=== PATIENT | female | born 1940 | race Caucasian/White ===

== ENCOUNTER 2018-06-02 12:16 | Inpatient (IN) | payer MEDICARE, OTHER ==
[~2018-06-02] VITALS: Ht 167.6 cm; Wt 97.1 kg
[2018-06-02] MEDS ORDERED: ALEVE220 MG PO (13:07)
[2018-06-02] MEDS ORDERED: GLIPIZIDE XL5 MG PO (13:08)
[2018-06-02] MEDS ORDERED: SYNTHROID100 MC1 PO (13:09)
[2018-06-02] MEDS ORDERED: PERCOCET PO (13:10)
[2018-06-02] MEDS ORDERED: XARELTO10 MG PO (13:12)
[2018-06-02 13:59] VITALS: BP 117/48
--- NOTE | 2018-06-02 15:30 | NUR ---
REPORT RECEIVED FROM TAMRA AT [facility], PATIENT ADMITTED TO ROOM 321. A/O, REPORTS DISCOMFORT TO LEFT FEMUR, ICE PACK IN PLACE, DECLINED NARCOTIC PAIN MEDICATION. SURGICAL WOUND TO LEFT LATERAL THIGH, DRESSING C/D/I, WRAPPED IN MOLLY BANDAGE. TOE TOUCH WEIGHT BEARING TO LEFT LEG, VITALS STABLE, ORIENTED TO ROOM AND PLAN OF CARE, FAMILY AT BEDSIDE, CALL LIGHT IN REACH.
[2018-06-02 20:20] VITALS: BP 116/49
[2018-06-03 04:49] LABS: HEMOGLOBIN 10.8 gm/dL (12.0-15.0); MCH 30.2 pg (26.0-34.0); MCHC 33.6 g/dL (28.0-37.0); MCV 89.9 fL (80.0-100.0); MPV 8.9 fl. (7.2-11.1); RBC 3.56 mil/uL (4.20-5.00); RDW-CV 12.9 % (10.5-14.5); WBC 5.4 thou/uL (4.0-11.0)
[2018-06-03 05:01] LABS: CALCIUM 8.5 mg/dL (8.5-10.1); CREATININE 0.8 mg/dL (0.6-1.3); POTASSIUM 4.7 mmol/L (3.5-5.1)
--- NOTE | 2018-06-03 05:50 | NUR ---
PT SLEPT AT INTERVALS DURING THE NIGHT, PLEASANT, PRN PAIN MEDS PER REQUEST, UP WITH MINIMAL ASSIST WITH LEFT LEG, THEN AMBULATES INTO BATHROOM WITH GAITBELT AND WALKER WITH SUPERVISION, INDEPENDENT WITH TOILETING/WIPING. PLEASANT, CALL LIGHT IN REACH, BED ALARM ON FOR SAFETY, WILL CONTINUE TO MONITOR
[2018-06-03 08:00] VITALS: BP 138/60
--- NOTE | 2018-06-03 10:32 | NUR ---
RESUMED CARE THIS AM, EXT ASSIST OF ONE WITH PLANE CHANGES, DISCOMFORT MANAGED WELL WITH NARCOTIC MEDICATION, DOES MAKE PATIENT VERY SLEEPY, MEDICATION CHANGE ORDERED BY DR. ABDI TO ENHANCE THERAPY PARTICIPATION. GLUCOSE MAINTAINED WELL WITH ORAL MEDICATION, CONTINENT OF BOWEL/BLADDER, MAKES APPROPRIATE DECISIONS REGARDING SAFETY, CARE PLAN REVIEWED, NO QUESTIONS AT THIS TIME, CONT POC.
[2018-06-03 20:00] VITALS: BP 129/53
--- NOTE | 2018-06-04 06:10 | NUR ---
ASSUMED CARES AT 1920. PT ALERT AND ORIENTED. PLEASANT. S/P LEFT FEMUR ORIF. TTWB LLE. C/O BURNING PAIN TO LEFT LEG. REFUSED TO TAKE PERCOCET WHEN OFFERED. TAKES PILLS WHOLE WITHOUT ISSUES. SHE IS A MIN ASSIST WITH GAIT BELT AND WALKER. UP TO BATHROOM. DOES OWN CARES. NEEDS ASSIST WITH LLE IN/OUT BED. DRESSING TO LEFT LEG C/D/I. SLEPT BETTER TONIGHT DUE TO BEING TIRED. USED CALL LIGHT APPROPRIATELY. BED ALARM ON.
[2018-06-04 08:00] VITALS: BP 133/55
--- NOTE | 2018-06-04 10:34 | NUR ---
RESUMED CARE THIS AM, CONT TO REPORT BURNING SENSATION TO LEFT THIGH, SETUP/STANDBY ASSIST WITH BED MOBILITY, TRANSFERS, AMBULATION, TOILETING, PERSONAL HYGEINE. CARE PLAN REVIEWED WITH PATIENT, DENIES QUESTIONS AT THIS TIME, CONT POC.
--- NOTE | 2018-06-04 18:18 | NUR ---
TOLERATED BED MOBILITY, TRANSFERS, AMBULATION TO TOILET, TRANSFERS TO WHEELCHAIR ALL THIS SHIFT WITHOUT NARCOTIC PAIN MEDICATION, SCHEDULED ULTRAM AND NAPROXEN GIVEN ORDERED, ICE PACK APPLIED TO LEFT THIGH, SLEPT ON AND OFF THROUGHOUT THIS SHIFT, COMPLIANT WITH MEDS AND CARES.
[2018-06-04 20:00] VITALS: BP 116/57
--- NOTE | 2018-06-05 05:01 | NUR ---
ASSUMED CARES AT 1920. PT ALERT AND ORIENTED. PLEASANT. TTWB LLE. REFUSED PAIN MEDS FOR LLE PAIN. DENIES NEED FOR ALTERNATE PAIN MED. SAYS WILL TAKE WHEN HAS THERAPIES. ISLAND DRESSING TO LEFT THIGH INTACT. SHE IS A MIN ASSIST WITH GAIT BELT AND WALKER. UP TO BATHROOM. DOES OWN CARES. SLEPT OFF AND ON. CALL LIGHT IN REACH AND BED ALARM ON.
[2018-06-05 08:00] VITALS: BP 137/55
--- NOTE | 2018-06-05 13:08 | NUR ---
Nutrition: Pt admitted to Rehab s/p open biopsy bone cancer. CHO count diet, eating 100%. Wt: 200#. +BM. BG 172. RX and PMHx noted. No acute nutrition concerns at this time. Will follow weekly.
--- NOTE | 2018-06-05 15:07 | NUR ---
ASSUMED CARE AT 0730. ALERT ORIENTED PLEASANT COOPERATIVE. HX OF L FEMUR ORIF DUE TO BONE TUMOR. TTWBLLE TRANSFERS WITH SBA G BELT AMBULATES TO BR TO VOID AND ABLE TO DO HYGEINE AND CLOTHING ADJUSTMENTS. USES CALL LIGHT APPROPRIATELY FOR ASSIST FEEDS SELF TAKES MEDS WITHOUT DIFFICULTY. PARTICIPATING IN THERAPIES. MEDICATED WITH PRN MEDS X 2 FOR L THIGH BURNING PAIN. DRESSING C/DI TO L THIGH. DID HAVE C/O NAUSEA STOMACH CRAMPS CHILLS WHEN AWAKEDING THIS A.M. VSWNL AND THE SYMPTOMS PASSED AFTER BREAKFAST.
--- NOTE | 2018-06-05 16:12 | NUR ---
SW met with pt to complete initial assessment, introduce self, and SW role on rehab unit. Pt lives home alone [place] of [place], [place] and was staying with her son Didier in [place], [place] up until the surgery and plans to dc to son Didier's home until after follow up with surgeon and clearance from the surgeon to return home alone. Pt has a follow up 's appt with Dr Billingsley on [facility] on ; SW to follow to arrange transportation, pt son to call SW to discuss which transport they would prefer as pt had stated the transport to this hospital was very bumpy and uncomfortable. Pt has RW, grab bars, shower chair, and stool riser. SW to continue to follow to assist with safe dc planning.
[2018-06-05 19:50] VITALS: BP 123/53
--- NOTE | 2018-06-06 05:25 | NUR ---
ASSUMED CARES AT 1920. PT ALERT AND ORIENTED. PLEASANT. SAYS THAT BURNING PAIN TO LLE HAS LESSENED SOME. BUT MOVEMENT INCREASES PAIN. ICE PACK GIVEN. REFUSED PERCOCET. ORDER OBTAINED FOR LOW DOSE S/S INSULIN. PT ATE HS SNACK. MIN ASSIST WITH GAIT BELT AND WALKER. UP TO BATHROOM SEVERAL TIMES DURING THE NIGHT. DOES OWN CARES. SLEPT OTHERWISE. CALL LIGHT IN REACH.
[2018-06-06 08:21] VITALS: BP 129/57
--- NOTE | 2018-06-06 11:29 | NUR ---
MARY called pt son Didier who did not answer so MARY left a detailed message requesting call back with any questions or comments in preparation for team conference tomorrow. SW to follow to arrange transportation to pt appt on and to follow to assist with safe dc planning.
--- NOTE | 2018-06-06 15:51 | NUR ---
AM ASSESSMENT AND VITAL SIGNS COMPLETED DOCUMENTED. DRESSING TO LEFT UPPER LEG C/D/I. PRN PAIN MEDICATION GIVEN FOR C/O PAIN AND BURNING AT SURGICAL SIGHT, ICE PACK ALSO APPLIED WITH ADEQUATE RELIEF. PT IS ABLE TO AMBULATE SHORT DISTANCES WITH A WALKER AND SBA, CONTINUES TO BE TTWB. FALL PRECAUTIONS AND HOURLY ROUNDING IN PLACE.
[2018-06-06 20:30] VITALS: BP 115/46
--- NOTE | 2018-06-06 20:35 | NUR ---
SITTING UP IN BED WATCHING TV. DENIES DISCOMFORT. GAVE MOM AND PRUNE JUICE FOR C/O CONSTIPATION. DIDN'T WANT TO TAKE A SUPPOSITORY. TOOK MEDS WHOLE WITH POP FROM [employer].
--- NOTE | 2018-06-07 05:14 | NUR ---
UP X TWO DURING THE NIGHT TO THE BATHROOM. THE SECOND TIME HAD A LARGE LOOSE BM. AMBULATES TO THE BATHROOM WITH SBA, GAITBELT, WALKER. DOES OWN HYGIENE AND CLOTHING ADJUSTMENTS. TOE TOUCH WEIGHT BEARING TO LEFT LOWER EXTREMITY. LEFT LEG DRESSING DRY/INTACT.
[2018-06-07 08:00] VITALS: BP 113/53
--- NOTE | 2018-06-07 18:01 | NUR ---
AM ASSESSMENT AND VITAL SIGNS COMPLETED DOCUMENTED. PT CONTINUES TO PROGRESS TOWARD DISCHARGE GOALS. PRN PERCOCET GIVEN X 1 THIS SHIFT WITH ADEQUATE PAIN CONTROL. FALL PRECAUTIONS AND HOURLY ROUNDING CONTINUE.
--- NOTE | 2018-06-07 20:25 | NUR ---
SITTING UP IN BED PLAYING A VIDEO GAME ON HER CELL PHONE. PAIN MEDICATION GIVEN FOR COMPLAINT OF LEFT LEG PAIN. LEFT LEG DRESSING DRY/INTACT. AMBULATED TO BATHROOM WITH SBA, GAITBELT, WALKER. DOES OWN HYGIENE AND CLOTHING ADJUSTMENTS. COLD PACK GIVEN PER REQUEST TO PLACE ON LEFT LEG FOR PAIN RELIEF. TOOK MEDICATIONS WHOLE ALL AT ONCE WITH DEANDRE MIST.
[2018-06-07 20:26] VITALS: BP 110/45
--- NOTE | 2018-06-08 05:04 | NUR ---
UP X TWO DURING THE NIGHT TO THE BATHROOM TO VOID. NO FURTHER C/O PAIN. HOURLY ROUNDING IN PROGRESS.
[2018-06-08 08:00] VITALS: BP 132/58
--- NOTE | 2018-06-08 16:22 | NUR ---
MARY and Dr Yañez met with pt and pt to review team conference summary. Plan for pt to remain on rehab unit and continuing therapies one more weed with reteam on Tuesday and possible dc home on 06/15. Pt and pt okay with plan. MARY discussed possible need for ramp and that SW will continue to follow to assist with safe dc planning.
--- NOTE | 2018-06-08 17:02 | NUR ---
ASSUMMED CARE OF PT AT 0730, PT ALERT AND ORIENTED, PT TRANSFERS WITH SBA GB AND WALKER, COMPLAINS OF PAIN IN LEFT LEG, MEDICATED PER ORDER, DRESSING DRY AND INTACT, TAKING FOOD AND FLUIDS WELL, VOIDS PER TOILET, TO DININGROOM FOR LUNCH, PT WENT TO [facility] OFFICE AT 1445, AWAINTING RWETURN TO UNIT, PARTCIPATED IN ALL THERAPIES, HOURLY ROUNDING COMPLETED ASSESSMENT COMPLETE WILL COTNINUE TO MONITOR.
[2018-06-08 20:01] VITALS: BP 128/49
--- NOTE | 2018-06-09 05:11 | NUR ---
ASSUMED CARES AT 1920. PT ALERT AND ORIENTED. PLEASANT. S/P LEFT FEMUR ORIF. TTWB LLE. C/O MORE BURNING PAIN THAN BEFORE ESPECIALLY TO LEFT KNEE. PERCOCET GIVEN ALONG WITH ICE PACK WHICH SEEMED TO HELP. DRESSING TO LEFT THIGH IN PLACE. ALSO NOW HAS YEASTY RASH UNDER LEFT BREAST. MIN ASSIST WITH GAIT BELT AND WALKER. UP TO BATHROOM FEW TIMES DURING THE NIGHT. DOES OWN CARES. SLEPT OTHERWISE. CALL LIGHT IN REACH. BED ALARM ON.
[2018-06-09 08:00] VITALS: BP 140/67
--- NOTE | 2018-06-09 16:02 | NUR ---
ASSUMED CARE AT 0730. ALERT ORIENTED PLEASANT COOPERATIVE. HX OF BONE TUMOR L UPPER THIGH, ORIF DONE TTWBLLE TRANSFERS WITH SBA G BELT WALKER AND AMBULATES TO BR ABLE TO DO HYGEINE AND CLOTHING ADJUSTMENTS. USES CALL LIGHT APPROPRIATELY FOR ASSIST PARTICIPATING IN THERAPIES. TAKES MEDS WITHOUT DIFFICULTY. FEEDS SELF APPETITE GOOD. MEDICATED X 1 FOR BURNING PAIN L THIGH WITH SOME RELIEF. MOVED TO 330 THIS AFTERNOON WITH BELONGINGS.
[2018-06-09 20:35] VITALS: BP 123/48
--- NOTE | 2018-06-10 00:44 | NUR ---
ASSUMED CARE AT 1930. RESTING IN RECLINER UNTIL HS. UP WITH SBA, GAIT BELT, WALKER. TTBW LLE. VOIDS PER TOILET AND DOES ALL HYGIENE AND CLOTHING ADJUSTMENTS. THIGH DRESSING C/D/I. TURNS SELF. NEEDS A LITTLE HELP GETTING LLE INTO BED. HOURLY ROUNDS CONTINUE. BED ALARM ON. CALL LITE IN REACH.
--- NOTE | 2018-06-10 05:50 | NUR ---
SLEPT MOST OF THE NIGHT EXCEPT TO VOID. VOIDED ABOUT EVERY 2-3 HOURS PER TOILET. NO C/O PAIN. HOURLY ROUNDS CONTINUE. BED ALARM ON. CALL LITE IN REACH.
[2018-06-10 08:15] VITALS: BP 128/57
--- NOTE | 2018-06-10 16:56 | NUR ---
ASSUMMED CARE OF PT AT 0730, PT ALERT AND ORIENTED, TRANSFERS WITH SBA GB AND WALKER, MAINTAINS TTWB TO LEFT LEG, DRSG C/D/I TO LEFT LEG, PT REQUESTING GABAPENTIN DOSE BE INCREASED, ORDER OBTAINED, AMBULATES TO TOILET TO VOID, AMBULATES TO DININGROOM FOR MEALS, PARTICIAPTED IN ALL THERAPIES, HOURLY ROUNDING COMPLETED, ASSESSMENT COMPLETE, WILL CONTINUE TO MONITOR.
[2018-06-10 20:31] VITALS: BP 139/53
--- NOTE | 2018-06-10 23:40 | NUR ---
ASSUMED CARE AT 1930. PATIENT WAS PLAYING GAMES IN DINING ROOM. AMBULATED TO ROOM WITH WALKER, GAIT BELT, SBA. VOIDED PER TOILET. DOES OWN HYGIENE AND CLOTHING ADJUSTMENTS. MAINTAINS TTWB TO LLE. NEEDS HELP GETTING LT LEG INTO BED. DRESSING C/D/I. SKIN UNDER LT BREAST IMPROVING WITH NYSTATIN POWDER. TAKES PILLS WHOLE WITH WATER. HOURLY ROUNDS CONTINUE, BED ALARM ON. CALL LITE IN REACH.
--- NOTE | 2018-06-11 06:14 | NUR ---
SLEPT MOST OF THE NIGHT EXCEPT WHEN UP TO VOID. VOIDS PER TOILET, UP WITH SBA, GAIT BELT, WALKER TTWB TO LLE MAINTAINED. BED ALARM ON. CALL LITE IN REACH. HOURLY ROUNDS CONTINUE. NO FURTHER C/O PAIN.
[2018-06-11 08:21] VITALS: BP 133/58
--- NOTE | 2018-06-11 17:02 | NUR ---
ASSUMMED CARE OF PT AT 0730, PT ALERT AND ORIENTED, PT TRANSFERS WITH SBA, GB WALKER, PT COMPLETED GROOMING AND BATHING SITTING AT SINK, ABLE TO DRESS SELF WITH SLIGHT STEADYING WHEN ADJUSTS CLOTHING UP, PT HAS NOT REQUESTED ANY PAIN MEDICATION THIS SHIFT, PT DID COMPLAIN OF PAINFUL AREA ON HER BUTTOCKS, NOTED A SMALL RED AREA, ALMOST A BLISTER, AREA CLEANSED, BARRIER OINTMENT APPLIED, CONSULT TO WOUND NURSE DONE, PT EDUCATED ON IMPORTANCE OF REPOSTIONING FREQUENTLY, PT COMMUNICATES UNDERSTANDING AND HAS BEEN LAYING ON SIDES WHEN IN BED, VOIDS PER TOILET, LARGE BM X 1 THIS SHIFT, TAKING FOOD AND FLUIDS WELL, HOURLY ROUNDING COMPLETED, ASSESSMENT COMPLETE, WILL CONTINUE TO MONITOR.
[2018-06-11 19:30] VITALS: BP 110/71
--- NOTE | 2018-06-12 00:03 | NUR ---
ASSUMED CARE AT 1929. PATIENT RESTING IN RECLINER BUT ATTEMPTING TO CHANGE POSITIONS. STATES THAT TODAY WAS THE FIRST TIME THAT SHE COULD LIE ON HER SIDE WITHOUT PAIN. UP WITH SBA, GAIT BELT, WALKER. 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 SHE IS VERY RELUCTANT TO LOOK AT THE WOUND. VOIDS PER TOILET. TO BED AROUND 2129, STARTING OFF ON RIGHT SIDE. NO C/O PAIN. HOURLY ROUNDS CONTINUE. BED ALARM ON, CALL LITE IN REACH, PATIENT PLAYING GAMES ON PHONE AT TIMES.
--- NOTE | 2018-06-12 05:37 | NUR ---
SLEPT MOST OF THE NIGHT EXCEPT TO VOID. NO C/O PAIN. HOURLY ROUNDS CONTINUE. BED ALARM ON. CALL LITE IN REACH.
[2018-06-12 07:35] VITALS: BP 117/52
--- NOTE | 2018-06-12 18:21 | NUR ---
ASSUMED CARE AT 0730 ALERT ORIENTED PLEASANT COOPERATIVE. HX OF L THIGH ORIF FOR BONE TUMOR. INCISION EASTON HEALING, TTWBLLE AMBULATES TO BR WITH WALKER AND GAIT BELT ABLE TO MANAGE ALL CLOTHING ADJUSTMENTS AND HYGEINE. USES CALL LIGHT APPROPRIATELY FOR ASSIST PARTICIPATING IN THERAPIES. DENIES NEED FOR PAIN MED TODAY WHEN OFFERED.
[2018-06-12 19:30] VITALS: BP 114/48
--- NOTE | 2018-06-13 05:14 | NUR ---
ASSUMED CARES AT 1920. PT ALERT AND ORIENTED. PLEASANT. DENIED ANY NEED FOR PAIN MEDS. SHE IS A SBA WITH GAIT BELT AND WALKER. UP TO BATHROOM. DOES OWN CARES. LEFT LEG INCISION WELL APPROXIMATED WITHOUT DRAINAGE. NO ISSUES. SLEPT WELL MOST OF THE NIGHT. CALL LIGHT IN REACH. BED ALARM ON.
[2018-06-13 08:31] VITALS: BP 124/57
--- NOTE | 2018-06-13 15:27 | NUR ---
SW called pt son Didier in preparation for team conference tomorrow. Pt son did not have any questions or comments and was aware that pt may be able to dc on as discussed last week in team. SW mentioned that SW and pt discussed DME yesterday and pt already has RW and pt looking in to finding a wc if needed but SW explained that pt does not qualify for a wc at this time. Pt will dc to pt son's home: [address] [place] [place] [address]. SW to continue to follow to assist with safe dc planning and discuss with pt HH options and arrange HH services as recommended.
--- NOTE | 2018-06-13 17:12 | NUR ---
RICHIE ALBRIGHT HAS REVIEWED AND AGREES WITH STUDENT NURSES CHARTING THROUGHOUT SHIFT.
--- NOTE | 2018-06-13 18:28 | NUR ---
PT CAROLYN A&LASHAWN. VITAL SIGNS STABLE ON ROOM AIR. NO COMPLAINTS OF NAUSEA OR SOA. PAIN MANAGED WITH TOPICAL MEDICATION. SBA WITH GAIT BELT AND WALKER. UP TO THE BATHROOM. DOES OWN CARES. PARTICIPATED IN THERAPIES THROUGHOUT SHIFT. HOURLY ROUNDS MAINTAINED. CALL LIGHT WITHIN REACH. WILL CONTINUE TO MONITOR.
[2018-06-13 19:30] VITALS: BP 118/55
--- NOTE | 2018-06-14 05:00 | NUR ---
ASSUMED CARES AT 1920. PT ALERT AND ORIENTED. PLEASANT. DENIED ANY NEED FOR PAIN MEDS. TTWB LLE. SBA WITH GAIT BELT AND WALKER. UP TO BATHROOM. DOES OWN CARES. NO ISSUES OVERNIGHT. CALL LIGHT IN REACH AND BED ALARM ON.
[2018-06-14 08:00] VITALS: BP 141/61
--- NOTE | 2018-06-14 10:04 | NUR ---
WOUND CARE NOTE: CONSULT RECEIVED FOR REDNESS TO BOTTOM. PATIENT PRESENTS WITH A SMALL RED AREA TO HER COCCYX APPROXIMATELY 0.5X0.5 NO OPENING. PATIENT DOES WEAR DEPENDS, WHICH MAY BE A CONTRIBUTING FACTOR. PATIENT STATES AREA IS FEELING MUCH BETTER. PATIENT STATES WHEN SHE SITS IN HER CHAIR SHE SITS SIDE TO SIDE, AVOIDING THE AREA. ALSO STATED SHE SLEPT ON HER SIDES LAST NIGHT. ALSO USES BARRIER OINTMENT. EDUCATED PATIENT ON USING A WAFFLE CUSHION IN HER CHAIR INSTEAD OF PILLOWS, COMMUNICATED UNDERSTANDING. RECOMMEND TURN Q2 HOURS BARRIER OINTMENT BID AND PRN WAFFLE CUSHION WHEN IN CHAIR WILL SIGN OFF AT THIS TIME, PLEASE RECONSULT IF NEEDED
[2018-06-14 16:55] VITALS: BP 141/61
--- NOTE | 2018-06-14 16:56 | NUR ---
Plan for pt to dc home with son tomorrow, 06/15. HH services tomorrow; pt preference for [facility]; SW faxed referral and final orders and med list. Pt son to provide pt ride home. No other dc needs expressed.
--- NOTE | 2018-06-14 17:00 | NUR ---
AM ASSESSMENT AND VITAL SIGNS COMPLETED DOCUMENTED. PT HAS BEEN PLEASANT AND COOPERATIVE, CONTINUES TO WORK TOWARD DISCHARGE GOALS. LEFT UPPER LEG INCISION IS EASTON, WELL APPROXIMATED AND HEALING WELL. PT ENCOURAGED TO USE A WAFFLE CUSHION WHEN UP IN A CHAIR AND TO SHIFT HER WEIGHT FREQUENTLY. PT HAS BEEN AMBULATING TO THE DINING ROOM FOR MEALS, USES AND A WALKER AND IS TTWB. FALL PRECAUTIONS AND HOURLY ROUNDING CONTINUE.
[2018-06-14 20:30] VITALS: BP 126/51
[2018-06-14 22:09] VITALS: BP 141/61
[2018-06-14] MEDS ORDERED: GABAPENTIN100 MG PO (22:23)
--- NOTE | 2018-06-15 05:15 | NUR ---
ASSUMED CARES AT 1920. ALERT AND ORIENTED. PLEASANT. DENIED ANY PAIN. TTWB LLE. SBA WITH GAIT BELT AND WALKER. UP TO BATHROOM. DOES OWN CARES. PT TURNS SELF IN BED. SLEPT OFF AND ON. CALL LIGHT IN REACH AND BED ALARM ON.
[2018-06-15 08:27] VITALS: BP 136/56
[2018-06-15 10:54] VITALS: BP 141/61
--- NOTE | 2018-06-15 10:55 | NUR ---
CM INFORMED BY NURSING THAT THE PATIENT REQUEST CHANGE IN HH TO [facility]. CM CONTACTED [facility] TO INFORM OF THE NEW REFERRAL AND FAXED PATIENT'S CLINICAL INFO AND D/C ORDERS. CM ALSO SPOKE TO BETHEL AT [facility] TO INFORM THAT THE PATIENT AND FAMILY HAS CHOSEN TO USE ANOTHER HH. CM WILL REMAIN AVAILABLE TO ASSIST AND FOLLOW NEEDED.
--- NOTE | 2018-06-15 14:51 | NUR ---
PT CARE ASSUMED AT 0720, ASSESSMENT AND VITAL SIGNS COMPLETED DOCUMENTED. PT HAS COMPLETED ALL THERAPY SESSIONS FOR THE DAY. DISCHARGE INSTRUCTIONS AND NEW PRESCRIPTIONS DISCUSSED WITH PT, PRINTED INFORMATION PROVIDED FOR HOME. FALL PRECAUTIONS AND HOURLY ROUNDING WILL CONTINUE UNTIL DISCHARGE.
--- NOTE | 2018-06-15 16:45 | NUR ---
PT AND BELONGINGS TRANSPORTED TO EXIT, DISCHARGED HOME IN STABLE CONDITION.
--- NOTE | 2018-06-22 12:46 | H ---
[place] [address] HISTORY AND PHYSICAL Name: HARMONY DURBIN Room: [address]#: [id number] Admission: 06/02/18 Attend Phys: Alejandrina Yañez DO Discharge: 06/15/18 Date of : 42 Report #: [id number] THIS REPORT FOR: //name// CC: THEA Yañez Physician staff DATE OF SERVICE: 06/02/2018 HISTORY OF PRESENT ILLNESS: This is a 77-year-old female admitted to inpatient rehabilitation to facilitate safe discharge home, status post acute rehabilitation for debility. No significant changes since preadmission screening. Previous level of function was modified independent to independent with activities of daily living. Current level of function is minimum to moderate assistance of 1-2 depending on therapy, activity and time of day. ALLERGIES: No known drug allergies. PAST MEDICAL HISTORY: Diabetes, lumbar . PAST SURGICAL HISTORY: Hysterectomy, tonsillectomy and cataract surgery. SOCIAL HISTORY: No tobacco, alcohol or illicit drug use. REVIEW OF SYSTEMS: A 14-point review of systems is done and is negative other than mentioned in the HPI. PHYSICAL EXAMINATION: GENERAL: Alert and oriented, no apparent distress. VITAL SIGNS: Reviewed and are stable. HEENT: Head atraumatic, normocephalic. Pupils equal, round, reactive. ABDOMEN: Soft, nontender, nondistended. NEUROLOGIC: Cranial nerves 2 through 12 are grossly intact. No focal deficits. ASSESSMENT AND PLAN: 1. Debility. 2. Multiple medical comorbidities. 3. Assessment admission to inpatient rehabilitation. 4. PT, OT, case management, nursing and HIMS to make evaluations and recommendations. 5. Plan of care is pending. We will team her weekly and make changes to plan of care as needed. <ELECTRONICALLY SIGNED> By: Alejandrina Yañez DO 06/22/18 1246 1845 1901Alejandrina Yañez DO /nt
--- NOTE | 2018-07-19 14:10 | D ---
[address] [address] DISCHARGE SUMMARY Name: RAMAKRISHNAHARMONY Concepcion Room: [address] IN [facility]#: [id number] Admission: 06/02/18 Attend Phys: Alejandrina Yañez DO Discharge: 06/15/18 Date of : 42 Report #: [id number] THIS REPORT FOR: //name// CC: THEA Yañez Physician staff DATE OF SERVICE: 06/15/2018 This is a 77-year-old female post-rehabilitation for diagnosis of debility, discharged to the home setting. Notifications for physician were given. Home health, PT, OT and nursing. Fall precautions. MEDICATIONS: Reviewed and reconciled by myself and are available in the MAR. DISCHARGE PHYSICAL EXAMINATION: GENERAL: Alert, oriented, in no apparent distress. VITAL SIGNS: Reviewed and are stable. HEENT: Atraumatic, normocephalic. Pupils are equal, round, reactive. ABDOMEN: Soft, nontender, nondistended. SKIN: Warm and dry. No rashes or lesions noted. <ELECTRONICALLY SIGNED> By: Alejandrina Yañez DO 07/19/18 1410 1223 [id number] Yañez DO /nt
== END 2018-06-15 16:53 | disposition home health service (06) | DRG 947 ==
LOC: M.REH 12:16
PROVIDERS: ADMIT Physical Medicine & Rehabilitation
DX: R53.81 Other malaise (principal); S72.002A Fracture of unspecified part of neck of left femur, initial encounter for closed fracture; E03.9 Hypothyroidism, unspecified; E11.40 Type 2 diabetes mellitus with diabetic neuropathy, unspecified; X58.XXXA Exposure to other specified factors, initial encounter; Z90.710 Acquired absence of both cervix and uterus; Z85.3 Personal history of malignant neoplasm of breast; Z98.42 Cataract extraction status, left eye; Z98.41 Cataract extraction status, right eye; Z79.899 Other long term (current) drug therapy; Y93.89 Activity, other specified; Y92.89 Other specified places as the place of occurrence of the external cause; Y99.8 Other external cause status

== ENCOUNTER 2020-10-22 09:09 | Inpatient (IN) | payer MEDICARE, OTHER ==
[~2020-10-22] VITALS: Ht 167.6 cm; Wt 89.8 kg
--- NOTE | ~2020-10-22 | OP ---
[address] [address] OPERATIVE REPORT Name: HARMONY DURBIN Room: [address] IN [facility]#: [id number] Admission: 10/22/20 Attend Phys: Umesh Hunt, Discharge: Date of : 42 Report #: [id number] THIS REPORT FOR: cc: Jessica Blandon MD, Jayne Lora MD ~ Barnhill, Gregory L. DO DICTATED BY: Rod Sotelo DO DATE OF SERVICE: 10/23/2020 PREOPERATIVE DIAGNOSIS: Left femoral neck fracture. POSTOPERATIVE DIAGNOSIS: Left femoral neck fracture. PROCEDURE: 1. Closed reduction with cannulated screw fixation of left subcapital femoral neck fracture. 2. Physician directed fluoroscopy less than 1 hour. SURGEON: Cory Beavers DO DOPE AND FABRIC WORKER: Rod Sotelo DO. ANESTHESIA: General. FLUIDS: Crystalloid. ESTIMATED BLOOD LOSS: 25 mL. DRAINS: None. SPECIMENS: None. COMPLICATIONS: None. CONDITION: Stable. DISPOSITION: PACU to Med/Surg. PREOPERATIVE ANTIBIOTICS: 2 grams Ancef. INDICATIONS: The patient is a 80-year-old female who suffered a ground level fall landing on her left side. She was brought to the Emergency Department. Imaging revealed a valgus impacted subcapital femoral neck fracture. We discussed with the patient that her injury is best treated with surgery. She has previous plate and screw fixation of her femur from a prior injury. We [facility] [address] [place] [address] OPERATIVE REPORT Name: HARMONY DURBIN Concepcion Room: [address] IN ..#: [id number] Admission: 10/22/20 Attend Phys: Umesh Hunt, Discharge: Date of : 42 Report #: [id number] recommended proceeding with cannulated screw fixation due to the valgus impacted nature of her fracture. Risks, complications and alternatives were reviewed with the patient and she elected to proceed. Full details of the conversation would be found on the consult note. DESCRIPTION OF PROCEDURE: The patient is seen in the preoperative area and the operative site was marked. She was transferred to the operating suite and placed in supine position on the operating table. She was given the benefit of general anesthesia, patient was given 2 grams of Ancef. The left lower extremity was then prepped and draped in usual sterile fashion. A C-arm was then used to confirm the valgus impacted nondisplaced nature of the fracture on AP and lateral views. A timeout was then performed verifying the correct patient, procedure, procedure site. All parties agreed. Incision was then made on the lateral aspect of the femur near the level of the lesser trochanter. A sharp dissection was carried down through the IT band to the level of bone. The inferior screw guidewire was then placed in appropriate position and confirmed on AP and lateral views. It was then advanced to appropriate depth and this process was then repeated for the anterior, superior and posterior superior screws. Guidewire positions were confirmed on AP and lateral views and then advanced to appropriate depth. The screw lengths were then measured. The near cortex was drilled and then appropriately sized screws were placed over the guidewires in an inverted triangle fashion. The guidewire was then removed. AP and lateral imaging confirmed these to be in appropriate position. These images were saved. Deep fascia was closed with 0 Vicryl. Subcutaneous tissue was closed with interrupted 2-0 Vicryl, skin was closed with lashaun. A Mepilex dressing was then placed. The patient was then awakened from anesthesia and transferred off the operating table back to the PACU area for recovery. Counts were verified correct x 2. Dr. Beavers was present for all critical aspects of the case. . By: 1403 1430Cory Beavers DO /nt
[~2020-10-22 09:09] MED LIST: ALEVE220 MG PO; GABAPENTIN100 MG PO; GLIPIZIDE XL5 MG PO; PERCOCET PO; SYNTHROID100 MC1 PO; XARELTO10 MG PO
[2020-10-22 09:14] VITALS: BP 150/60
[2020-10-22 09:50] LABS: ABSOLUTE LYMPHOCYTES 0.5 thou/uL (0.8-5.3); ABSOLUTE MONOCYTES 0.2 thou/uL (0.0-1.2); ABSOLUTE NEUTROPHILS 1.4 thou/uL (1.6-8.1); BASOPHILS 1.4 %; EOSINOPHILS 1.3 %; HEMATOCRIT 28.6 % (37.0-47.0); HEMOGLOBIN 9.8 gm/dL (12.0-15.0); LYMPHOCYTES 24.5 %; MCH 36.1 pg (26.0-34.0); MCHC 34.2 g/dL (28.0-37.0); MCV 105.6 fL (80.0-100.0); MONOCYTES 8.1 %; MPV 7.8 fl. (7.2-11.1); NUCLEATED RBCS 0 /100WBC; PLATELET COUNT* 182 thou/uL (150-400); POLYS 64.7 %; RBC 2.71 mil/uL (4.20-5.00); WBC 2.1 thou/uL (4.0-11.0)
[2020-10-22 09:59] LABS: CALCIUM 8.4 mg/dL (8.5-10.1); CREATININE 1.2 mg/dL (0.6-1.3)
[2020-10-22 10:03] LABS: ALBUMIN 3.3 g/dL (3.4-5.0); TOTAL BILIRUBIN 0.7 mg/dL (<0.1-1.0)
[2020-10-22] MEDS ORDERED: FEMARA2.5 MG PO (10:50)
[2020-10-22] MEDS ORDERED: IBRANCE75 MG PO (10:50)
[2020-10-22] MEDS ORDERED: ZOLOFT100 MG PO (10:51)
[2020-10-22] MEDS ORDERED: LORAZEPAM 0.50.5 MG PO (10:51)
--- NOTE | 2020-10-22 17:12 | EKG ---
[place] [address] ELECTROCARDIOGRAM REPORT Name: HARMONY DURBIN Room: [address] [place] [address] ADM IN [facility].#: [id number] Admission: 10/22/20 Attend Phys: Umesh Farris Discharge: Date of : 42 Date of Service: 10/22/20 1050 Report #: [id number] THIS REPORT FOR: //name// [facility] ED Test Date: 2020-10-22 Test Time: 10:50:47 Pat Name: HARMONY DURBIN Department: Room: [facility] Gender: F Rv Detailer: : 1940 Requested By: Hira Bradford Order Number: [id number] MD: Zaki Oglesby Measurements Intervals [place] Rate: 62 P: 48 IN: 175 QRS: 26 QRSD: 108 T: 60 QT: 433 QTc: 440 Interpretive Statements Sinus rhythm Minimal ST depression, inferior leads Baseline wander in lead(s) II,III,aVF No previous ECG available for comparison Electronically Signed On 10-22-2020 17:12:23 HONE OPERATOR by Zaki Oglesby [email or web address] <ELECTRONICALLY SIGNED> By: Zaki Oglesby MD, [facility] 10/22/20 1712 1050 1050 Zaki Oglesby MD, [facility] /EPI
[2020-10-22 17:27] VITALS: BP 126/43
[2020-10-22 20:21] VITALS: BP 113/44
[2020-10-22 23:00] VITALS: BP 133/48
[2020-10-23 07:30] VITALS: BP 123/53
[2020-10-23 17:05] VITALS: BP 127/51
[2020-10-23 20:00] VITALS: BP 110/68
[2020-10-24] VITALS: BP 95/45
[2020-10-24 04:00] VITALS: BP 151/53
[2020-10-24 07:30] VITALS: BP 136/47
[2020-10-24 16:49] VITALS: BP 136/54
[2020-10-24 21:00] VITALS: BP 123/51
[2020-10-25] VITALS: BP 138/58
[2020-10-25 08:00] VITALS: BP 123/47
[2020-10-25 15:43] VITALS: BP 150/62
[2020-10-25 20:00] VITALS: BP 123/57; BP 126/57
[2020-10-26 08:10] VITALS: BP 137/57
[2020-10-26 16:37] VITALS: BP 159/61
[2020-10-26 20:00] VITALS: BP 129/54
[2020-10-27 04:48] LABS: HEMATOCRIT 23.2 % (37.0-47.0); HEMOGLOBIN 8.1 gm/dL (12.0-15.0); MCH 37.3 pg (26.0-34.0); MCV 106.7 fL (80.0-100.0); MPV 7.8 fl. (7.2-11.1); RBC 2.17 mil/uL (4.20-5.00); RDW-CV 12.7 % (10.5-14.5)
[2020-10-27 05:08] LABS: WBC 1.9 thou/uL (4.0-11.0)
[2020-10-27 05:15] LABS: CALCIUM 7.5 mg/dL (8.5-10.1); CREATININE 0.7 mg/dL (0.6-1.3); MAGNESIUM 1.5 mg/dL (1.8-2.4); POTASSIUM 3.8 mmol/L (3.5-5.1)
[2020-10-27 07:40] VITALS: BP 164/71
[2020-10-27 17:07] VITALS: BP 139/60
[2020-10-27 20:54] VITALS: BP 131/49
[2020-10-28 05:57] LABS: HEMOGLOBIN 7.9 gm/dL (12.0-15.0); MCH 35.6 pg (26.0-34.0); MCHC 34.4 g/dL (28.0-37.0); MCV 103.6 fL (80.0-100.0); MPV 8.1 fl. (7.2-11.1); RBC 2.22 mil/uL (4.20-5.00); RDW-CV 12.3 % (10.5-14.5)
[2020-10-28 06:09] LABS: WBC 1.9 thou/uL (4.0-11.0)
[2020-10-28 07:45] VITALS: BP 153/63
[2020-10-28 08:23] LABS: ALBUMIN 2.4 g/dL (3.4-5.0); CALCIUM 7.8 mg/dL (8.5-10.1); CREATININE 0.9 mg/dL (0.6-1.3); MAGNESIUM 1.6 mg/dL (1.8-2.4); POTASSIUM 3.5 mmol/L (3.5-5.1); TOTAL BILIRUBIN 0.7 mg/dL (<0.1-1.0); TOTAL PROTEIN 5.9 g/dL (6.4-8.2)
[2020-10-28] MEDS ORDERED: HUMALOG100 UNIT/1 SUBQ (08:26)
[2020-10-28] MEDS ORDERED: TRAMADOL 50 MG50 MG PO (08:26)
[2020-10-28] MEDS ORDERED: OXYCODONE HCL 55 MG PO (08:26)
[2020-10-28] MEDS ORDERED: ELIQUIS5 MG PO (08:26)
== END 2020-10-28 15:50 | DRG 481 ==
LOC: M.ERS 09:09 → M.2W 12:45 → M.TBA-ER 12:45 → M.2W 20:34 → M.3W 10-26 00:24
PROVIDERS: Emergency Medicine Emergency Medical Services; Internal Medicine; ADMIT Family Medicine; ATTEND Family Medicine
PROC: 0QS734Z Reposition Left Upper Femur with Internal Fixation Device, Percutaneous Approach (ICD-10-PCS; principal; 2020-10-23)
DX: S72.012A Unspecified intracapsular fracture of left femur, initial encounter for closed fracture (principal); E44.1 Mild protein-calorie malnutrition; D61.818 Other pancytopenia; E11.9 Type 2 diabetes mellitus without complications; D53.9 Nutritional anemia, unspecified; Z20.828 Contact with and (suspected) exposure to other viral communicable diseases; W18.39XA Other fall on same level, initial encounter; Z90.710 Acquired absence of both cervix and uterus; Z79.84 Long term (current) use of oral hypoglycemic drugs; Z79.899 Other long term (current) drug therapy; Z88.0 Allergy status to penicillin; Z98.49 Cataract extraction status, unspecified eye; Z85.3 Personal history of malignant neoplasm of breast; Z85.830 Personal history of malignant neoplasm of bone; Y93.89 Activity, other specified; Y92.89 Other specified places as the place of occurrence of the external cause; Y99.8 Other external cause status; Z68.32 Body mass index [BMI] 32.0-32.9, adult

== ENCOUNTER 2020-10-28 12:19 | Inpatient (IN) | payer MEDICARE, OTHER ==
[~2020-10-28] VITALS: Ht 167.6 cm; Wt 90.1 kg
[~2020-10-28 12:19] MED LIST changes: +ELIQUIS5 MG PO; +FEMARA2.5 MG PO; +HUMALOG100 UNIT/1 SUBQ; +IBRANCE75 MG PO; +LORAZEPAM 0.50.5 MG PO; +OXYCODONE HCL 55 MG PO; +TRAMADOL 50 MG50 MG PO; +ZOLOFT100 MG PO
[2020-10-28 16:05] VITALS: BP 140/54
[2020-10-28 19:00] VITALS: BP 131/51
[2020-10-29 04:25] LABS: HEMATOCRIT 23.8 % (37.0-47.0); HEMOGLOBIN 8.2 gm/dL (12.0-15.0); MCH 36.3 pg (26.0-34.0); MCHC 34.6 g/dL (28.0-37.0); MPV 7.8 fl. (7.2-11.1); RBC 2.27 mil/uL (4.20-5.00); RDW-CV 12.4 % (10.5-14.5)
[2020-10-29 04:41] LABS: CREATININE 0.8 mg/dL (0.6-1.3); MAGNESIUM 1.6 mg/dL (1.8-2.4); POTASSIUM 3.4 mmol/L (3.5-5.1)
--- NOTE | 2020-10-29 05:05 | NUR ---
ASSUMED CARES AT 1920. ALERT AND ORIENTED. PLEASANT. LEFT HIP ORIF. 50% WT BEARING LLE. MIN ASSIST WITH GAIT BELT AND WALKER. UP TO BSC. PAIN MEDS GIVEN NEEDED FOR LEFT HIP PAIN. SLEPT OFF AND ON. CALL LIGHT IN REACH AND BED ALARM ON.
[2020-10-29 08:00] VITALS: BP 130/57
--- NOTE | 2020-10-29 13:24 | NUR ---
Nutrition: Pt admitted with Lt hip FX. Wt: 190#. +BM. Eating well on CHO controlled diet. Alb 2.4, prealb 11.8, BG WNL. Low risk.
--- NOTE | 2020-10-29 15:57 | NUR ---
ASSUMMED CARE OF PT AT 0730, PT ALERT AND ORIENTED, TRANSFERS WITH ASSIST OF 1, GB WALKER, NEEDS CUEING TO KEEP 50% WEIGHT BEAR TO LEFT LEG, DRESSING DRY AND INTACT, PT DENIES PAIN WHEN NOT MOVING, MEDICATED PRIOR TO THERAPY SO ABLE TO TOLERATE EXERCIZING, K+ AND MG+ LEVELS LOW, ORDER FOR PROTOCAL OBTAINED AND MEDS GIVEN, TAKING FOOD AND FLUIDS WELL, SON VISITING, UPDATED HIM AND ANSWERED HIS QUESTIONS. PARTICIPATED IN ALL THERAPIES, HOURLY ROUNDING COMPLETED, ASSESSMENT COMPLETE, WILL CONTINUE TO MONITOR.
[2020-10-29 20:00] VITALS: BP 134/55
--- NOTE | 2020-10-30 01:56 | NUR ---
ASSUMED CARE AT 191. PATIENT RESTING IN BED. TURNS SELF. NEEDS ASSIST IN RISING FROM BED TO STANDING, BUT ABLE TO AMBULATE AFTER THAT. CUEING NEEDED TO MAINTAIN 50% WT BEARING TO LLE. PAIN MED AT HS. SEE JAN. VOIDS PER BSC, DOES OWN HYGIENE. DRESSING TO LT HIP C/D/I. HAD APPLESAUCE AT HS FOR SNACK. STATES IF HER BLOOD SUGAR WAS 108 AT HOME, SHE WOULD NOT TAKE HER EVENING GLIPIZIDE. SHE TOOK IT WITH HS SNACK. CALL LITE IN REACH. BED ALARM ON. HOURLY ROUNDS CONTINUE.
--- NOTE | 2020-10-30 06:09 | NUR ---
SLEPT MUCH OF THE NIGHT EXCEPT WHEN AWAKENED TO VOID. UP WITH LIFTING ASSIST, GAIT BELT, WALKER. CUEING FOR 50% WB TO LLE. VOIDS PER BSC, DOES OWN HYGIENE. ORDER PLACED FOR MG AFTER REPLACEMENT PER PROTOCOL. ONLY PAIN IS FROM WOUNDS ON BUTTOCKS AND SHE LIES ON HER RIGHT SIDE TO OFFLOAD FOR THEM. CALL LITE IN REACH. BED ALARM ON. HOURLY ROUNDS CONTINUE.
[2020-10-30 08:00] VITALS: BP 157/63
--- NOTE | 2020-10-30 16:40 | NUR ---
INTIAL ASSESSMENT: PATIENT ADMITTED TO THE IN REHAB UNIT ON 10/28/20 WITH A DIAGNOSIS OF LEFT HIP FX. PT A&O, NORMALLY INDEPENDENT WITH ADL'S, AND ACTIVE. PT RESIDES AT HOME WITH SON, DIL, AND GRANDDAUGHTER. PT OWNS A WALKER AND A CANE, BUT DID NOT USE THEM PRIOR TO ADMIT. PT HAS HX OF HH, AND ARU. PT HAS 0 HX OF SNF. CM ORIENTED PT TO THE REHAB UNIT AND PROCESSES, TEAM CONFRENCE, RESIDENTS RIGHTS INFO, AND TO THE ROLE OF CM. CM WILL REMAIN AVAILABLE TO ASSIST AND FOLLOW NEEDED.
[2020-10-30 20:00] VITALS: BP 130/49
--- NOTE | 2020-10-31 04:42 | NUR ---
ASSUMED CARES AT 1920. ALERT AND ORIENTED. PLEASANT. HAVING INCREASED PAIN TO LEFT HIP OVERNIGHT. PAIN MEDS GIVEN NEEDED. LEFT HIP DRSG INTACT. MIN ASSIST WITH GAIT BELT AND WALKER. UP TO BR. 50% WT BEARING TO LLE. PT ENCOURAGED TO TAKE SNACK BUT PT ONLY AGREEABLE TO EATING SALTINES. SLEPT OFF AND ON. CALL LIGHT IN REACH AND BED ALARM ON.
[2020-10-31 08:00] VITALS: BP 121/48
--- NOTE | 2020-10-31 18:25 | NUR ---
ASSESSMENT COMPLETED DOCUMENTED THIS MORNING. PATIENT UP AND TOLERATING THERAPY FAIR. FREQUENT C/O HIP PAIN WITH ACTIVITY BUT ONCE SHE IS UP AND MOVING IT EASES UP. SOME CONFUSION AND FORGETFULNESS NOTED. HAS BEEN CONT OF B&B WITH ASSISTANCE TO THE BR PROVIDED.
[2020-10-31 20:00] VITALS: BP 121/49
--- NOTE | 2020-10-31 22:39 | NUR ---
ASSUMED CARE AT 1920. PATIENT RESTING IN BED. VOIDS PER TOILET. UP WITH SBA, CUEING TO REMIND OF 50% WT BEARING TO RLE. DOES OWN CARES. HAD SMALL BM. HAD DECLINED COLACE EARLIER IN SHIFT BUT CHANGED HER MIND AND TOOK IT AFTER SMALL BM. STATES THAT THERAPIES "WORKED HER HARD TODAY." TURNS SELF. NEEDS MINIMAL ASSIST TO GET LEGS INTO BED. DRESSING C/D/I. HOURLY ROUNDS CONTINUE. BED ALARM ON. CALL LITE IN REACH.
--- NOTE | 2020-11-01 05:09 | NUR ---
SLEPT MOST OF THE SHIFT EXCEPT WHEN SHE WOKE TO VOID. UP WITH MIN LIFTING ASSIST, GAIT BELT, WALKER, CUEING TO MAINTAIN 50% WB STATUS. DRESSING C/D/I. HOURLY ROUNDS CONTINUE. BED ALARM ON. CALL LITE IN REACH.
[2020-11-01 07:45] VITALS: BP 128/51
--- NOTE | 2020-11-01 17:24 | NUR ---
ALERT AND ORIENTED X4. UP WITH 1 ASSIST, GAIT BELT AND WALKER. REMAINS 50% WEIGHT BEARING TO LEFT LEG. DRESSING DRY AND INTACT OVER LEFT HIP INCISION. USING PO PAIN MEDICATION TO HELP WITH PAIN. CONTINENT OF BOWEL AND BLADDER. USES CALL LIGHT FOR ASSIST. FALL PRECAUTIONS IN PLACE. BED ALARM AND CHAIR ALARM USED.
[2020-11-01 19:00] VITALS: BP 108/43
--- NOTE | 2020-11-01 20:15 | NUR ---
RESTING QUIELTY IN BED, STARTING TO DRIFT OFF TO SLEEP. DENIES DISCOMFORT. CALL LIGHT WITHIN REACH.
--- NOTE | 2020-11-02 05:12 | NUR ---
UP TO THE BATHROOM SEVERAL TIMES DURING THE NIGHT TO VOID. 50% WEIGHT BEARING TO LEFT LOWER EXTREMITY. PAIN MEDICATION GIVEN ONCE FOR COMPLAINT OF LEFT HIP PAIN AND ONCE FOR COMPLAINT OF LEFT KNEE PAIN WITH RELIEF. HOURLY ROUNDING IN PROGRESS.
[2020-11-02 07:45] VITALS: BP 157/62
--- NOTE | 2020-11-02 17:26 | NUR ---
ALERT AND ORIENTED X4. UP WITH 1 ASSIST, GAIT BELT AND WALKER. DENIES NEED FOR PAIN MEDICATION. CONTINENT OF BOWEL AND BLADDER. DRESSING DRY AND INTACT OVER LEFT HIP INCISION. USES CALL LIGHT FOR ASSIST. FALL PRECAUTIONS IN PLACE. BED ALARM AND CHAIR ALARM USED.
[2020-11-02 20:00] VITALS: BP 135/54
--- NOTE | 2020-11-03 05:26 | NUR ---
ASSUMED CARES AT 1920. ALERT AND ORIENTED. PLEASANT. DENIED ANY PAIN MEDS. DRSG TO LEFT HIP INTACT. MIN ASSIST GAIT BELT AND WALKER. UP TO BR. SLEPT MOST OF THE NIGHT. NO ISSUES. CALL LIGHT IN REACH AND BED ALARM ON.
[2020-11-03 08:08] VITALS: BP 132/49
--- NOTE | 2020-11-03 15:20 | NUR ---
CM SPOKE TO THE PT TO DISCUSS ANY QUESTIONS OR CONCERNS THAT SHE MAY HAVE FOR THIS WEEKS TEAM [facility]ENCE MEETING. PT INFORMS THAT SHE IS HOPEFUL THAT SHE WILL BE ABLE TO GO HOME THIS WEEK. CM AND PHYSICIAN TO F/U WITH PT AFTER THE MEETING ON TUESDAY. CM WILL REMAIN AVAILABLE TO ASSIST AND FOLLOW NEEDED.
--- NOTE | 2020-11-03 15:59 | NUR ---
PT WORKED WITH THERAPIES. UP WITH STB ASSIST AND WALKER.
[2020-11-03 20:00] VITALS: BP 129/53
[2020-11-04 04:26] LABS: HEMATOCRIT 25.5 % (37.0-47.0); HEMOGLOBIN 8.8 gm/dL (12.0-15.0); MCH 35.3 pg (26.0-34.0); MCHC 34.6 g/dL (28.0-37.0); MCV 102.1 fL (80.0-100.0); RBC 2.5 mil/uL (4.20-5.00); RDW-CV 12.5 % (10.5-14.5); WBC 3.3 thou/uL (4.0-11.0)
[2020-11-04 05:09] LABS: CALCIUM 8.8 mg/dL (8.5-10.1); MAGNESIUM 1.9 mg/dL (1.8-2.4)
--- NOTE | 2020-11-04 05:40 | NUR ---
ASSUMED CARES AT 1920. ALERT AND ORIENTED. PLEASANT. DENIED ANY NEED FOR PAIN MEDS. 50% WT BEARING TO LLE. MIN ASSIST WITH GAIT BELT AND WALKER. UP TO BR. PT STATED THAT SHE WAS TOLD SHE COULD GO TO BATHROOM BY HERSELF. TOLD PT THAT WOULD NEED TO CLARIFY THIS WITH THERAPY AND DOCTOR FIRST. SLEPT OFF AND ON. CALL LIGHT IN REACH AND BED ALARM ON.
[2020-11-04 08:00] VITALS: BP 129/57
--- NOTE | 2020-11-04 15:53 | NUR ---
ASSUMMED CARE OF PT AT 0730, PT ALERT AND ORIENTED, PT TRANSFERS WITH SBA, GB WALKER, AMB TO BATHROOM, NEEDS SOME CUEING TO MAINTAIN 50% WT BEAR, CONTINENT OF URINE, VOIDS PER TOILET, TAKING FOOD AND FLUIDS WELL, DRESSING DRY AND INTACT, DR REED OFFICE CALLED AND PHYSICIAN WILL SEE PT IN AM AND DECIDE REGARDING SUTURE REMOVAL, PT C/O HIP PAIN, MEDICATED PER ORDER, PARTICIPATED IN ALL THERAPIES, HOURLY ROUNDING COMPLETED, ASSESSMENT COMPLETE, WILL CONTINUE TO MONITOR.
[2020-11-04 19:00] VITALS: BP 122/48
--- NOTE | 2020-11-04 22:54 | NUR ---
ASSUMED CARE AT 1930. PATIENT SLEEPING AT CHANGE OF SHIFT, AWAKENED FOR HS MEDS. TAKES PILLS WHOLE WITH WATER. DRESSING TO LT HIP C/D/I. STATES PAIN IS RELIEVED AT HS MED PASS. VOIDS PER TOILET, NEEDS CUEING FOR 50% WT BEARING. REFUSED PAIN MED AT HS. HOURLY ROUNDS CONTINUE. BED ALARM ON. CALL LITE IN REACH.
[2020-11-05 04:27] LABS: CALCIUM 8.7 mg/dL (8.5-10.1); CREATININE 1.1 mg/dL (0.6-1.3); POTASSIUM 3.9 mmol/L (3.5-5.1)
[2020-11-05 04:31] LABS: HEMATOCRIT 25.3 % (37.0-47.0); HEMOGLOBIN 8.8 gm/dL (12.0-15.0); MCH 36.1 pg (26.0-34.0); MCHC 34.7 g/dL (28.0-37.0); MCV 104.1 fL (80.0-100.0); MPV 7.8 fl. (7.2-11.1); RBC 2.43 mil/uL (4.20-5.00); RDW-CV 12.4 % (10.5-14.5); WBC 3.1 thou/uL (4.0-11.0)
--- NOTE | 2020-11-05 05:17 | NUR ---
SLEPT MOST OF THE NIGHT, GETTING UP FOR VOIDING. VOIDS PER TOILET. UP WITH GAIT BELT, WALKER. DOES OWN CARES. NO C/O PAIN. HOURLY ROUNDS CONTINUE. BED ALARM ON. CALL LITE IN REACH.
--- NOTE | 2020-11-05 07:04 | NUR ---
ORTHO ROUNDED. HE CHANGED DRESSING. STATES STILL NEEDS TO BE ON 50% WEIGHT BEARING. ORDERS PLACED FOR STAPLE REMOVAL 11/06.
[2020-11-05 08:00] VITALS: BP 120/51
--- NOTE | 2020-11-05 18:04 | NUR ---
ALERT AND ORIENTED X4. UP WITH STAND BY ASSIST, GAIT BELT AND WALKER. USED PO PAIN MEDICATION TO HELP WITH PAIN. CONTINENT OF BOWEL AND BLADDER. DRESSING DRY AND INTACT OVER LEFT HIP. REMAINS 50% WEIGHTBEARING TO LEFT HIP. USING CALLLIGHT FOR ASSIST. FALL PRECAUTIONS IN PLACE. BED ALARM AND CHAIR ALARM USED.
[2020-11-05 19:00] VITALS: BP 140/50
--- NOTE | 2020-11-05 20:00 | NUR ---
RESTING QUIETLY IN BED. IN GOOD SPIRITS, SMILING. LOOKING FORWARD TO BEING DISCHARGED TO HOME TOMORROW. CALL LIGHT WITHIN REACH. DENIES DISCOMFORT.
--- NOTE | 2020-11-06 05:24 | NUR ---
RESTED QUIETLY. UP X TWO DURING THE NIGHT TO THE BATHROOM TO VOID. HOURLY ROUNDING IN PROGRESS.
[2020-11-06 08:00] VITALS: BP 111/48
[2020-11-06] MEDS ORDERED: ASPIRIN325 PO (10:25)
[2020-11-06 11:41] VITALS: BP 111/48
[2020-11-06 12:40] VITALS: BP 111/48
--- NOTE | 2020-11-06 13:31 | NUR ---
CM SPOKE TO THE PT TO DISCUSS DISCHARGE PLANNING AND HER D/C HOME TODAY WITH HH. PT IN AGREEMENT. HH ARRANGED WITH [facility] AND THEY WILL CONTACT THE PT'S SON TO ARRANGE A TIME TO VISIT. CM FAXED PT'S D/C ORDERS TO [facility]. CM WILL REMAIN AVAILABLE TO ASSIST AND FOLLOW NEEDED. [facility] PHONE: [phone]
[2020-11-06] MEDS ORDERED: TRAMADOL 50 MG50 MG PO ×2 (13:46→13:47)
--- NOTE | 2020-11-06 14:59 | NUR ---
ASSUMMED CARE OF PT AT 0730, PT ALERT AND ORIENTED, TRANSFERS WITH SBA, GB WALKER, TAKING FOOD AND FLUIDS WELL, LAISHA REMOVED FORM LEFT HIP, INCISION HEALING, OPEN TO AIR, PT VOIDS PER TOILET, DOES NEED SOME CUEING TO MAINTAIN 50% WT BEAR, PARTICIAPTED IN ALL THERAPIES, HOURLY ROUNDING COMPLETED, ASSESSMENT COMPLETE, ORDERS OBTAINED FOR DISCHARGE, PT AND SON EDUCATED ON FOLLOW UP APPTS, WHEN TO CALL PHYSICIAN, MEDICATIONS, HOME HEALTH, DIET, PT STATES UNDERSTANDING OF INSTRUCTIONS, SCRIPT FOR TRAMADOL GIVEN TO PT, PT DISCHARGED PER W/C WITH BELONGINGS TO MAIN ENTRANCE.
== END 2020-11-06 14:00 | disposition home health service (06) | DRG 536 ==
LOC: M.REH 12:19
PROVIDERS: Family Medicine; ADMIT Physical Medicine & Rehabilitation; ATTEND Physical Medicine & Rehabilitation
DX: S72.012A Unspecified intracapsular fracture of left femur, initial encounter for closed fracture (principal); D61.818 Other pancytopenia; R53.81 Other malaise; T50.905A Adverse effect of unspecified drugs, medicaments and biological substances, initial encounter; E11.9 Type 2 diabetes mellitus without complications; Z85.3 Personal history of malignant neoplasm of breast; Z88.0 Allergy status to penicillin; Y92.89 Other specified places as the place of occurrence of the external cause; W18.39XA Other fall on same level, initial encounter; Y93.89 Activity, other specified; Y99.8 Other external cause status; Z79.899 Other long term (current) drug therapy; Z82.49 Family history of ischemic heart disease and other diseases of the circulatory system; Z90.710 Acquired absence of both cervix and uterus; Z98.49 Cataract extraction status, unspecified eye